=== PATIENT | male | born 1970 | race Caucasian/White ===

== ENCOUNTER 2018-03-18 20:37 | Emergency (ER) | payer OTHER ==
[~2018-03-18] VITALS: Ht 160 cm; Wt 87.5 kg
[2018-03-18] MEDS ORDERED: LODINE300 MG (21:07)
[2018-03-19] MEDS ORDERED: NORFLEX100MG PO (01:53)
[2018-03-19] MEDS ORDERED: KETO10TA2 PO (01:53)
== END 2018-03-19 02:05 | disposition home or self-care (01) ==
LOC: ER 20:37
DX: S80.11XA Contusion of right lower leg, initial encounter (principal); S30.0XXA Contusion of lower back and pelvis, initial encounter; S60.221A Contusion of right hand, initial encounter; W18.39XA Other fall on same level, initial encounter; Y93.89 Activity, other specified; Y92.008 Other place in unspecified non-institutional (private) residence as the place of occurrence of the external cause; Y99.8 Other external cause status

== ENCOUNTER 2020-10-31 19:17 | Emergency (ER) | payer OTHER ==
[~2020-10-31] VITALS: Ht 160 cm; Wt 90.7 kg
[~2020-10-31 19:17] MED LIST: KETO10TA2 PO; LODINE300 MG; NORFLEX100MG PO
[2020-10-31] MEDS ORDERED: BACTRIM DS TAB1 EACH PO (23:00)
[2020-10-31] MEDS ORDERED: DICLOFENAC SODI75 MG PO (23:00)
[2020-11-18] MEDS ORDERED: ADVIL100 M1 PO (14:46)
[2020-11-18] MEDS ORDERED: CLARITIN10 M1 PO (14:46)
[2020-11-18] MEDS ORDERED: VITAL-D RX TAB1 EACH PO (14:47)
== END 2020-10-31 23:24 | disposition home or self-care (01) ==
LOC: ER 19:17
DX: L02.511 Cutaneous abscess of right hand (principal); L03.011 Cellulitis of right finger; B95.61 Methicillin susceptible Staphylococcus aureus infection as the cause of diseases classified elsewhere

== ENCOUNTER 2020-11-22 06:30 | Day surgery (SDC) | payer OTHER ==
[~2020-11-22 06:30] MED LIST changes: +ADVIL100 M1 PO; +BACTRIM DS TAB1 EACH PO; +CLARITIN10 M1 PO; +DICLOFENAC SODI75 MG PO; +VITAL-D RX TAB1 EACH PO
== END 2020-11-22 16:00 | disposition home or self-care (01) ==
LOC: CIR.AMB 06:30
PROVIDERS: ATTEND Orthopaedic Surgery Hand Surgery
DX: L03.011 Cellulitis of right finger (principal); Z20.822 Contact with and (suspected) exposure to COVID-19